=== PATIENT | female | born 1995 | race Caucasian/White ===

== ENCOUNTER 2019-10-27 12:46 | Observation (INO) | payer OTHER ==
[~2019-10-27] VITALS: Ht 170.2 cm; Wt 127.0 kg
[2019-10-27 14:30] VITALS: BP 124/73
[2019-10-27 14:39] LABS: BASOPHILS % (AUTO) 0.3 % (0.0-2.0); EOSINOPHILS % (AUTO) 0.5 % (0.0-4.0); HEMATOCRIT 36.7 % (36-48); HEMOGLOBIN 12.3 g/dL (12.0-16.0); LYMPHOCYTES # (AUTO) 1.8 K/uL (2.5-16.5); LYMPHOCYTES % (AUTO) 19.6 % (20.5-51.1); MEAN CORPUSCULAR HEMOGLOBIN 31 pg (27-31); MEAN CORPUSCULAR HGB CONC 34 g/dL (33-37); MEAN CORPUSCULAR VOLUME 92.5 fL (80-94); MONOCYTES # (AUTO) 0.7 K/uL (0.8-1.0); NEUTROPHILS # (AUTO) 6.7 K/uL (1.8-7.7); NEUTROPHILS % (AUTO) 71.6 % (42.2-75.2); PLATELET COUNT (AUTO) 275 K/uL (140-450); RED BLOOD CELL COUNT(AUTO) 3.97 MIL/uL (4.20-5.40); RED CELL DISTRIBUTION WIDTH 14.3 % (11.6-13.7); WHITE BLOOD COUNT (AUTO) 9.3 K/uL (4.8-10.8)
[2019-10-27 14:51] LABS: APPEARANCE,URINE SL CLOUDY (CLEAR); BILIRUBIN,URINE NEGATIVE (NEGATIVE); BLOOD, URINE TRACE-I (NEGATIVE); COLOR,URINE YELLOW (YELLOW); LEUKOCYTE ESTERASE ,URINE 2+ (NEGATIVE); NITRITE, URINE NEGATIVE (NEGATIVE); PH,URINE 5.5 (5.0-9.0); UGLUCOSE NEGATIVE (NEGATIVE)
[2019-10-27 15:19] LABS: PROTHROMBIN TIME 8.6 secs (10.8-13.4)
[2019-10-27 15:20] LABS: RBC,URINE 0-5 /HPF (0-5)
[2019-10-27 15:54] LABS: ALBUMIN 2.4 g/dL (3.4-5.0); ANION GAP 16.8 (8-16); CARBON DIOXIDE 23.6 mmol/L (21-32); CREATININE 0.6 mg/dL (0.6-1.3); POTASSIUM 4.4 mmol/L (3.5-5.1); TOTAL BILIRUBIN 0.2 mg/dL (0.0-1.0)
[2019-10-27] MEDS ORDERED: PREN-13 PO (17:46)
== END 2019-10-27 16:47 | disposition home or self-care (01) ==
LOC: MFCC 12:46
PROVIDERS: ADMIT Obstetrics & Gynecology; ATTEND Obstetrics & Gynecology
DX: O16.3 Unspecified maternal hypertension, third trimester (principal); Z3A.34 34 weeks gestation of pregnancy; Z79.899 Other long term (current) drug therapy
CPT/HCPCS: 36415; 80053; 81001; 82570; 85025; 85384; 85610; 85730; 87086; G0378

== ENCOUNTER 2019-11-10 22:11 | Inpatient (IN) | payer OTHER ==
[~2019-11-10] VITALS: Ht 170.2 cm; Wt 130.6 kg
[~2019-11-10 22:11] MED LIST: PREN-13 PO
[2019-11-10] MEDS ORDERED: LACTATED RINGERS 1,000 ML IV SCH (22:45)
[2019-11-10] MEDS ORDERED: NALBUPHINE 10 MG/ML AMP IVP PRN (22:45)
[2019-11-10] MEDS ORDERED: LACTATED RINGERS 500 ML IV SCH (22:45)
[2019-11-10] MEDS ORDERED: PROMETHAZINE 25 MG/ML VIAL IVP ONE (22:45)
[2019-11-10] MEDS ORDERED: MISOPROSTOL 25 MCG TAB VG PRN (22:50)
[2019-11-10 23:00] VITALS: BP 123/84
[2019-11-10 23:45] LABS: BASOPHILS % (AUTO) 0.2 % (0.0-2.0); EOSINOPHILS % (AUTO) 0.4 % (0.0-4.0); HEMATOCRIT 37.1 % (36-48); HEMOGLOBIN 12.3 g/dL (12.0-16.0); LYMPHOCYTES # (AUTO) 2.6 K/uL (2.5-16.5); LYMPHOCYTES % (AUTO) 25.4 % (20.5-51.1); MEAN CORPUSCULAR HEMOGLOBIN 31 pg (27-31); MEAN CORPUSCULAR HGB CONC 33 g/dL (33-37); MEAN CORPUSCULAR VOLUME 92.5 fL (80-94); MONOCYTES # (AUTO) 0.8 K/uL (0.8-1.0); MONOCYTES % (AUTO) 7.6 % (1.7-9.3); NEUTROPHILS # (AUTO) 6.8 K/uL (1.8-7.7); NEUTROPHILS % (AUTO) 66.4 % (42.2-75.2); PLATELET COUNT (AUTO) 250 K/uL (140-450); RED BLOOD CELL COUNT(AUTO) 4.01 MIL/uL (4.20-5.40); RED CELL DISTRIBUTION WIDTH 14.6 % (11.6-13.7); WHITE BLOOD COUNT (AUTO) 10.2 K/uL (4.8-10.8)
[2019-11-10 23:45] LABS: APPEARANCE,URINE HAZY (CLEAR); BILIRUBIN,URINE NEGATIVE (NEGATIVE); BLOOD, URINE NEGATIVE (NEGATIVE); COLOR,URINE YELLOW (YELLOW); LEUKOCYTE ESTERASE ,URINE 1+ (NEGATIVE); NITRITE, URINE NEGATIVE (NEGATIVE); PH,URINE 5.5 (5.0-9.0); UGLUCOSE NEGATIVE (NEGATIVE)
[2019-11-10 23:56] LABS: ANION GAP 15.6 (8-16); CARBON DIOXIDE 23.7 mmol/L (21-32); CREATININE 0.6 mg/dL (0.6-1.3); POTASSIUM 4.3 mmol/L (3.5-5.1)
[2019-11-11 00:01] LABS: RBC,URINE 0-5 /HPF (0-5)
[2019-11-11 00:01] LABS: ALBUMIN 2.5 g/dL (3.4-5.0); TOTAL BILIRUBIN 0.2 mg/dL (0.0-1.0)
[2019-11-11 00:02] LABS: CALCIUM OXALATE CRYSTALS,UR 0-10 /HPF (None Seen)
[2019-11-11] MEDS ORDERED: AMPICILLIN 2,000 MG in NACL 0.9% 100 ML IV STA (00:07)
[2019-11-11] MEDS ORDERED: AMPICILLIN 2,000 MG VIAL ONE (00:21)
[2019-11-11] MEDS ORDERED: AMPICILLIN 1,000 MG in NACL 0.9% 50 ML IV SCH (04:00)
[2019-11-11] MEDS ORDERED: AMPICILLIN 1,000 MG VIAL ONE ×2 (04:00→07:34)
[2019-11-11] MEDS ORDERED: OXYTOCIN 20 UNITS in LACTATED RINGERS 1,000 ML IV SCH (05:05)
[2019-11-11] MEDS ORDERED: BUPIVACAINE 0.125%/NS PREMIX 250 ML EPI SCH (05:05)
[2019-11-11] MEDS ORDERED: OXYTOCIN 20 UNITS/LR PREMIX 1,000 ML IV ONE (05:22)
[2019-11-11] MEDS ORDERED: BISACODYL 5 MG TABEC PO PRN (08:45)
[2019-11-11] MEDS ORDERED: MEASLES, MUMPS, AND RUBELLA 1 VIAL SQVAC PRN (08:45)
[2019-11-11] MEDS ORDERED: METHYLERGONOVINE 0.2 MG TAB PO PRN (08:45)
[2019-11-11] MEDS ORDERED: OXYTOCIN 10 UNITS/ML VIAL IM PRN (08:45)
[2019-11-11] MEDS ORDERED: BENZOCAINE/MENTHOL 20%-0.5% 60 GM CAN TP PRN (08:45)
[2019-11-11] MEDS ORDERED: IBUPROFEN 600 MG TAB PO PRN (08:45)
[2019-11-11] MEDS ORDERED: IBUPROFEN 800 MG TAB PO PRN (08:45)
[2019-11-11] MEDS ORDERED: METHYLERGONOVINE 0.2 MG/ML AMP IM PRN (08:45)
[2019-11-11] MEDS ORDERED: CARBOPROST 250 MCG/ML AMP IM SCH (10:05)
--- NOTE | 2019-11-12 08:39 | NUR ---
PATIENT HAS BEEN SCREENED AND CATEGORIZED LOW NUTRITION RISK. PATIENT WILL BE SEEN WITHIN 7 DAYS OF ADMISSION. 11/17/[address]
[2019-11-12 09:18] LABS: BASOPHILS % (AUTO) 0.2 % (0.0-2.0); EOSINOPHILS % (AUTO) 0.3 % (0.0-4.0); HEMATOCRIT 33.2 % (36-48); HEMOGLOBIN 11.2 g/dL (12.0-16.0); LYMPHOCYTES # (AUTO) 2.3 K/uL (2.5-16.5); LYMPHOCYTES % (AUTO) 22.7 % (20.5-51.1); MEAN CORPUSCULAR HEMOGLOBIN 31 pg (27-31); MEAN CORPUSCULAR HGB CONC 34 g/dL (33-37); MONOCYTES # (AUTO) 0.6 K/uL (0.8-1.0); NEUTROPHILS # (AUTO) 7.2 K/uL (1.8-7.7); NEUTROPHILS % (AUTO) 70.8 % (42.2-75.2); PLATELET COUNT (AUTO) 204 K/uL (140-450); RED BLOOD CELL COUNT(AUTO) 3.57 MIL/uL (4.20-5.40); RED CELL DISTRIBUTION WIDTH 14.3 % (11.6-13.7); WHITE BLOOD COUNT (AUTO) 10.1 K/uL (4.8-10.8)
== END 2019-11-12 17:15 | disposition home or self-care (01) | DRG 560 ==
LOC: MLD 22:11 → MFCC 11-11 12:25
PROVIDERS: ADMIT Obstetrics & Gynecology; ATTEND Obstetrics & Gynecology
PROC: 10E0XZZ Delivery of Products of Conception, External Approach (ICD-10-PCS; principal; 2019-11-10)
PROC: 3E0234Z Introduction of Serum, Toxoid and Vaccine into Muscle, Percutaneous Approach (ICD-10-PCS; 2019-11-11)
DX: O13.4 Gestational [pregnancy-induced] hypertension without significant proteinuria, complicating childbirth (principal); Z23 Encounter for immunization; Z37.0 Single live birth; Z3A.37 37 weeks gestation of pregnancy
CPT/HCPCS: 36415; 51702; 59200; 59409; 80053; 81001; 85025; 86592; 86886; 86900; 86901; 87086; 87653-90; 90715; J0290; J2210; J2590; J3490; J7120